=== PATIENT | female | born 1995 | race Caucasian/White ===

== ENCOUNTER 2018-04-07 18:49 | Emergency (ER) | payer BC ==
[2018-04-07] MEDS: IPRATROPIUM (NEB) 0.5 MG/2.5 ML AMP INH (20:48)
[2018-04-07] MEDS: ALBUTEROL 0.5% (NEB) 2.5 MG/0.5 ML AMP INH (20:48)
[2018-04-07] MEDS: SOD CHLORIDE 0.9% 1,000 ML IV (21:03)
[2018-04-07] MEDS: METHYLPREDNISOLONE 125 MG INJ IV (21:03)
== END 2018-04-07 22:38 | disposition home or self-care (01) ==
LOC: FTE 18:49
DX: J20.9 Acute bronchitis, unspecified (principal)
CPT/HCPCS: 71046; 81025; 94644; 96374; 99284-25

== ENCOUNTER 2018-04-29 23:03 | Emergency (ER) | payer BC ==
[2018-04-29] MEDS: CEFTRIAXONE 1 GM/50 ML (PMX) 50 ML IVPB (23:39)
[2018-04-29] MEDS: DEXAMETHASONE 10 MG/ML 1 ML INJ IV (23:39)
[2018-04-29] MEDS: SOD CHLORIDE 0.9% 1,000 ML IV (23:43)
[2018-04-29] MEDS: LEVALBUTEROL (NEB) 1.25 MG/0.5 ML AMP HHN (23:49)
[2018-04-29] MEDS: IPRATROPIUM (NEB) 0.5 MG/2.5 ML AMP HHN (23:49)
== END 2018-04-30 01:30 | disposition home or self-care (01) ==
LOC: FTE 23:03
DX: J32.9 Chronic sinusitis, unspecified (principal); J40 Bronchitis, not specified as acute or chronic; H66.90 Otitis media, unspecified, unspecified ear
CPT/HCPCS: 71046; 81025; 94664; 96374; 96375; 99284-25

== ENCOUNTER 2018-05-31 09:17 | Emergency (ER) | payer BC ==
[2018-05-31] MEDS: IPRATROPIUM (NEB) 0.5 MG/2.5 ML AMP INH (09:57)
[2018-05-31] MEDS: LEVALBUTEROL (NEB) 1.25 MG/0.5 ML AMP INH (10:00)
[2018-05-31] MEDS: SOD CHLORIDE 0.9% 1,000 ML IV (10:10)
[2018-05-31] MEDS: METHYLPRED. NA SUCC 250 MG in DEXTROSE 5% 50 ML IV (10:10)
[2018-05-31] MEDS: ACETAMINOPHEN 325 MG TAB PO (10:50)
[2018-05-31] MEDS: IBUPROFEN 600 MG TAB PO (10:50)
[2018-05-31] MEDS: CEFTRIAXONE 1 GM/50 ML (PMX) 50 ML IVPB (11:50)
== END 2018-05-31 13:30 | disposition home or self-care (01) ==
LOC: FTE 09:17
DX: J45.901 Unspecified asthma with (acute) exacerbation (principal)
CPT/HCPCS: 71045; 81025; 87400; 94644; 96365; 96375; 99284-25